=== PATIENT | male | born 1995 ===

== ENCOUNTER 2017-08-16 22:51 | Emergency (ER) | payer OTHER ==
[2017-08-16 22:57] VITALS: TEMP 97.7; O2SAT 96
[2017-08-16] MEDS ORDERED: IBUPROFEN 600 MG TAB PO ONE (23:08)
--- NOTE | 2017-08-16 23:18 | EDPHY ---
H & P Time Seen by Provider: 08/16/17 23:03 HPI/ROS: CHIEF COMPLAINT: "I dislocated my shoulder" HISTORY OF PRESENT ILLNESS: 21-year-old male with no prior history of shoulder dislocations states that he is playing soccer this evening, his hand when up in the air suddenly and felt that his shoulder is located. Subsequently spontaneously reduced. Currently is feeling mild pain in the right anterior shoulder. No deformity. No paresthesia. No direct trauma or fall. PHYSICAL EXAM (Prior to examination, patient consented to physical exam, hands were washed and my usual and customary physical exam procedures followed) 1) GENERAL: Well-developed, well-nourished, alert and oriented. Appears to be in no acute distress. 2) HEAD: Normocephalic 3) HEENT: Pupils equal, round, reactive to light bilaterally. 4) LUNGS: Breathing comfortably. 5) MUSCULOSKELETAL: Normal anatomic landmarks. Reproducible anterior shoulder pain with range of motion. Soft compartments. Normal coloration. 6) SKIN: Intact 7) VASCULAR: pulses and cap refill present are brisk 8) NEUROLOGIC: Radial, ulnar, median nerve function intact with no deficits appreciated on exam DIFFERENTIAL DIAGNOSIS: in no particular order including but not limited to fracture, sprain, compartment syndrome Smoking Status: Never smoked Constitutional: Initial Vital Signs Temperature (C) 36.5 C 08/16/17 22:54 Heart Rate 93 08/16/17 22:54 Respiratory Rate 16 08/16/17 22:54 Blood Pressure 135/90 H 08/16/17 22:54 O2 Sat (%) 96 08/16/17 22:54 Allergies/Adverse Reactions: No Known Allergies Allergy (Unverified 07/19/14 17:29) Home Medications: Medication Instructions Recorded NK [No Known Home Meds] 07/19/14 MDM/Departure - MDM Imaging: I viewed and interpreted images myself Procedures: Procedure: Splint A sling was applied by ER pulmonology technician. After application of the splint I returned and re-examined the patient. The splint was adequately immobilizing the joint and distal to the splint the patient's circulation and sensation were intact. Patient shows no signs of compartment syndrome. Was given orthopedic precautions. ED Course/Re-evaluation: Re-evaluation with serial exams. He is currently not dislocated. Recommend follow up with Orthopedics see may necessitate more advanced imaging. Usual and customary orthopedic precautions and instructions provided. Care of patient under supervision of secondary supervising physician Dr Romano . - Depart Disposition: Home, Routine, Self-Care Clinical Impression: Right shoulder pain Qualifiers: Chronicity: acute Qualified Code(s): M25.511 - Pain in right shoulder Condition: Good Instructions: Shoulder Sprain (ED) Additional Instructions: Return to the ER immediately if you experience discoloration, have worsening pain, numbness, tingling, or any other symptoms that concern you. If you received x-rays in the emergency department today, be advised, that ligamentous , tendon, muscular, and other non-bony injury cannot be fully ruled out. Try to keep your affected extremity elevated above the level of your chest, and keep cold packs on the affected area, for the next 48 hours. Referrals: Everett Mcarthur MD [Medical Doctor] - 1-2 days without fail
[2017-08-16] MEDS ORDERED: HYDROCOD/APAP 5/325 PREPACK#6 BTL TAKEHOME ONE ×2 (23:46)
[2017-08-16 23:55] VITALS: BP 141/80; PULSE 84; RESP 14
== END 2017-08-17 00:17 | disposition home or self-care (01) ==
DX: M25.511 Pain in right shoulder (principal)
CPT/HCPCS: A4565

== ENCOUNTER 2018-11-06 20:44 | Emergency (ER) | payer OTHER | END 2018-11-06 21:48 | disposition home or self-care (01) ==